=== PATIENT | female | born 1995 ===

== ENCOUNTER 2017-03-21 19:18 | Emergency (ER) | payer MEDICAID, OTHER ==
[2017-03-21 20:17] LABS: Basophils % (Auto) 0.3 % (0.0-1.8); Eosinophils % (Auto) 0.5 % (0.0-4.3); Hematocrit 33.4 % (30.3-42.9); Hemoglobin 11.5 gm/dl (10.1-14.3); Mean Corpuscular HGB Conc 34 % (30-34); Mean Corpuscular Hemoglobin 31 pg (28-32); Mean Corpuscular Volume 90 fl (79-97); Platelet Count 280 K/mm3 (140-440); Red Blood Count 3.72 M/mm3 (3.65-5.03); Red Cell Distribution Width 13.5 % (13.2-15.2); White Blood Count 18.4 K/mm3 (4.5-11.0)
[2017-03-21 20:20] LABS: Alanine Aminotransferase 11 units/L (7-56); Albumin 2.9 g/dL (3.9-5); Albumin/Globulin Ratio 0.8 %; Alkaline Phosphatase 67 units/L (35-129); Anion Gap 17 mmol/L; Blood Urea Nitrogen 4 mg/dL (7-17); Calcium 8.5 mg/dL (8.4-10.2); Carbon Dioxide 24 mmol/L (22-30); Chloride 96.8 mmol/L (98-107); Glucose 85 mg/dL (65-100); Lipase 11 units/L (13-60); Potassium 3.5 mmol/L (3.6-5.0); Sodium 134 mmol/L (137-145); Total Protein 6.4 g/dL (6.3-8.2)
[2017-03-21 21:54] LABS: Bacteria,Urine 3+ /HPF (Negative); Bilirubin,Urine NEG (Negative); Blood,Urine MOD (Negative); Ketones,Urine NEG (Negative); Leukocyte Esterase,Urine LG (Negative); Mucus,Urine FEW /HPF; Nitrite,Urine NEG (Negative); Protein,Urine <15 mg/dL mg/dL (Negative)
[2017-03-22] MEDS ORDERED: NACL 0.9% 1000 ML 1,000 ML ONE (05:53)
[2017-03-22] MEDS ORDERED: ZOFRAN IV ONE (05:55)
[2017-03-22] MEDS ORDERED: NACL 0.9% 1000 ML 1,000 ML IV ONE (05:55)
[2017-03-22] MEDS ORDERED: MORPHINE IV ONE (05:55)
--- NOTE | 2017-03-22 06:01 | Emergency Department Report ---
HPI - General Chief Complaint: Abdominal Pain Time Seen by Provider: 03/22/17 05:52 - HPI HPI: This is a 22-year-old female who presents to ED report lower quarter pain radiating to her back for 2 days. Patient rates pain as 8 out of 10, sharp, without alleviating or exacerbating factors. Patient denies any prior episode of such pain. Her Last menstrual period started on January 24. Patient complained of nausea with eating for the past 2 days also but no vomiting. Patient denies any fever, chills, night sweats. Patient denies any recent travel or sick contacts. ED Past Medical Hx - Past Medical History Previous Medical History?: No - Surgical History Past Surgical History?: No - Social History Smoking Status: Current Every Day Smoker Substance Use Type: Alcohol - Medications Home Medications: Home Medications Medication Instructions Recorded Confirmed Last Taken Type Nitrofurantoin [place]/M-Cryst 100 mg PO Q12HR #20 capsule 03/22/17 Unknown Rx [Macrobid CAP] ED Review of Systems ROS: Stated complaint: PAINFUL TO URNIATE W/BLOOD IN URINE Other details as noted in HPI Physical Exam - Physical Exam Vital Signs: Vital Signs 03/21/17 03/22/17 19:35 03:18 Temperature 99.9 F H 98.4 F Pulse Rate 112 H 90 Respiratory 22 18 Rate Blood Pressure 130/66 111/60 O2 Sat by Pulse 100 99 Oximetry Physical Exam: Vital signs reviewed General: No limitations, patient is alert in no acute distress Head exam: Atraumatic, normocephalic Eyes exam: Normal appearance ENT: Moist mucous membrane, normal oropharynx Neck exam: Normal inspection, full range of motion, no meningismus nontender Respiratory exam: Clear to auscultation bilateral, no wheezes, rales, crackles Cardiovascular: Normal rate and rhythm Abdomen: Soft, nondistended, but has right lower quadrant tenderness gu: patient refused, Extremity: Full range of motion normal inspection no deformity Back: Normal Inspection, full range of motion, no tenderness Neurologic: Alert, oriented x3, cranial nerves intact, no motor or sensory deficit Psychiatric: normal affect, normal mood ED Course Vital Signs 03/21/17 03/22/17 19:35 03:18 Temperature 99.9 F H 98.4 F Pulse Rate 112 H 90 Respiratory 22 18 Rate Blood Pressure 130/66 111/60 O2 Sat by Pulse 100 99 Oximetry ED Medical Decision Making - Lab Data Result diagrams: 03/21/17 19:45 03/21/17 19:45 Critical care attestation.: If time is entered above; I have spent that time in minutes in the direct care of this critically ill patient, excluding procedure time. ED Disposition Clinical Impression: Qualifiers: Weeks of gestation: less than 8 weeks Qualified Code(s): Z3A.01 - Less than 8 weeks gestation of UTI (urinary tract infection) during Qualifiers: Trimester: first trimester Qualified Code(s): O23.41 - Unspecified infection of urinary tract in , first trimester Clinical Impression: (Ruled Out): Abdominal pain Disposition: - TO HOME OR SELFCARE Is pt being admited?: No Does the pt Need Aspirin: No Condition: Stable Instructions: Abdominal Pain (ED), Urinary Tract Infection in Women (ED) Prescriptions: Nitrofurantoin Cochran/M-Cryst [Macrobid CAP] 100 mg PO Q12HR #20 capsule Referrals: PRIMARY CAREMD [Primary Care Provider] - 3-5 Days ANKITA JUÁREZ MD [Staff Physician] - 3-5 Days
--- NOTE | 2017-03-22 07:33 | Ultrasound Report ---
ULTRASOUND OB GREATER THAN 14 WEEKS FETUS History: Abdominal pain during . Comparison: None. Technique: Transabdominal ultrasound with Doppler interrogation. Gestation: Single Position: Breech Amniotic Fluid: Within normal limits Placenta: Posterior Placental Grade: 0 Heart Rate: 140 BPM Cervical length: 3.3 cm (Normal > 3 cm) BPD: 5.3 cm = 22 w 1 d HC: 20.5 cm = 22 w 4 d AC: 16.8 cm = 21 w 5 d FL: 4.1 cm = 23 w 3 d HC/AC Ratio: 1.2 Cephalic Index: 78.1 Estimated Weight: 508 grams LMP: 01/24/17 Clinical age = 8 w 1 d EDC: 10/31/17 US Gest. Age = 22 w 3 d EDC: 07/23/17
[2017-03-22 08:16] VITALS: BP 103/58
== END 2017-03-22 08:17 | disposition home or self-care (01) ==
LOC: ED 19:18
DX: O23.41 Unspecified infection of urinary tract in pregnancy, first trimester (principal); O99.331 Smoking (tobacco) complicating pregnancy, first trimester; Z3A.01 Less than 8 weeks gestation of pregnancy
CPT/HCPCS: 36415; 76805; 80053; 81001; 83690; 84702; 84703; 85025; 96361; 96374; 96375; 99284; J2270; J2405; J7030

== ENCOUNTER 2017-05-10 20:07 | Emergency (ER) | payer MEDICAID ==
--- NOTE | 2017-05-11 01:04 | Emergency Department Report ---
Minor Respiratory - HPI Chief Complaint: Upper Respiratory Infection Stated Complaint: COUGHING Time Seen by Provider: 05/11/17 00:29 Duration: 7 days Pain Location: Other (headache x 2 days. 03/11) Severity: severe (03/11) Minor Respiratory: Yes Rhinorrhea (Nasal congestion and sinus presure), Yes Able to Tolerate Fluids, Yes Cough (dry), No Sore Throat, No Ear Pain (ear plugged), No Sick Contacts, No Hemoptysis, No Chest Pain, No Shortness of Breath , No Fever Other History: Patient here reports that she is having in runny nose and congestion with cough and when she coughs she is a little short of breathall of the coughing and she is having generalized body ache times one day. She reports she started with nasal congestion for over a week . she is having great drainage to the back of her throat. She denies any chest pain. She states that she started having headache 2 days ago did say that a 10 that comes and goes and is located in the front of her head. Denies any fever or chills. Denies any neck pain or stiffness. Patient says she is 29 weeks that she goes to lie cycle on her last ultrasound was done on 05/06/2017. She denies any nausea or vomiting or any fever or chills. She says her baby is moving normally. She is not having any abdominal pain, back pain, vaginal bleeding or discharge. No -related issues. ED Review of Systems ROS: Stated complaint: COUGHING Other details as noted in HPI Comment: All other systems reviewed and negative Constitutional: no symptoms reported Eyes: denies: vision change ENT: congestion (. Nasal congestion and drainage), other (plugged ear sensation ). denies: ear pain, throat pain Respiratory: cough, shortness of breath (shortness of breath with cough and). denies: orthopnea, SOB with exertion, SOB at rest, stridor, wheezing Cardiovascular: denies: chest pain, palpitations, dyspnea on exertion, edema, syncope Gastrointestinal: denies: abdominal pain, nausea, vomiting, diarrhea Genitourinary: denies: urgency, dysuria, frequency, hematuria, discharge, abnormal menses, dyspareunia Musculoskeletal: myalgia. denies: back pain, joint swelling, arthralgia Skin: denies: rash Neurological: headache. denies: weakness, numbness, paresthesias, confusion, abnormal gait, vertigo ED Past Medical Hx - Past Medical History Previous Medical History?: No - Surgical History Past Surgical History?: No - Family History Family history: no significant - Social History Smoking Status: Former Smoker Substance Use Type: Alcohol - Medications Home Medications: Home Medications Medication Instructions Recorded Confirmed Last Taken Type Nitrofurantoin [place]/M-Cryst 100 mg PO Q12HR #20 capsule 03/22/17 Unknown Rx [Macrobid CAP] Azithromycin [Zithromax Z-LEE ANN] 250 mg PO QAM #6 tablet 05/11/17 Unknown Rx guaiFENesin [Mucinex] 600 mg PO Q12H PRN #10 tab.er.12h 05/11/17 Unknown Rx Minor Respiratory Exam - Exam General: Vital signs noted. No distress. Alert and acting appropriately. This is a 22-year-old female well-nourished well-developed in no acute distress. HEENT: Yes Moist Mucous Membranes, Yes Rhinorrhea (nasal congestion with clear drainage), Yes Frontal Tenderness (positive frontal sinus tenderness), No Pharyngeal Erythema, No Pharyngeal Exudates, No Conjuctival Injection, No Maxillary Tenderness Ear: Neither TM Bulge (lateral TM congested without erythema), Neither TM Erythema, Neither EAC Pain, Neither EAC Discharge Neck: Yes Supple, No Adenopathy (no C-spine tenderness) Lungs: Yes Good Air Exchange, Yes Cough (right cough), No Wheezes, No Ronchi, No Stridor, No Labored Respirations (normal work of breathing and), No Retractions, No Use of Accessory Muscles, No Other Abnormal Lung Sounds Heart: Yes Regular (tachycardic at 108), No Murmur Abdomen: Yes Normal Bowel Sounds, No Tenderness, No Peritoneal Signs Skin: No Rash, No Edema Neurologic: No Gross neurological deficit. Musculoskeletal: Unremarkable. ED Course Vital Signs 05/10/17 20:12 Temperature 98.7 F Pulse Rate 108 H Blood Pressure 141/72 O2 Sat by Pulse 96 Oximetry Vital Signs 05/10/17 05/11/17 20:12 01:04 Temperature 98.7 F 97.9 F Pulse Rate 108 H 92 H Respiratory 18 Rate Blood Pressure 141/72 Blood Pressure 117/70 [Right] O2 Sat by Pulse 96 100 Oximetry - Reevaluation(s) Reevaluation #1: 05/11/17 01:07 Patient stable throughout ED stay. ED Medical Decision Making - Medical Decision Making ED course: Patient here complaining of upper respiratory symptoms. She's had similar episode in the past with her . She is not having any related issues and she's been followed by [facility] which she goes for regular visit. Her baby is moving fine and she had ultrasound on 05/06/2016 and was told that her baby is doing fine. Physical findings for sinusitis, cough and nasal congestion. I explained to patient treatment plan and diagnosis and she voiced understanding. Patient discharged home with her family in stable condition with prescription for Mucinex and Zpack and to follow up with her [facility] [employer] in 1-2 days. Critical care attestation.: If time is entered above; I have spent that time in minutes in the direct care of this critically ill patient, excluding procedure time. ED Disposition Clinical Impression: Cough in adult, Nasal congestion with rhinorrhea Sinusitis, acute Qualifiers: Sinusitis location: frontal Recurrence: not specified as recurrent Qualified Code(s): J01.10 - Acute frontal sinusitis, unspecified Headache Qualifiers: Headache type: unspecified Headache chronicity pattern: episodic headache Intractability: not intractable Qualified Code(s): R51 - Headache Disposition: DC-01 TO HOME OR SELFCARE Is pt being admited?: No Does the pt Need Aspirin: No Condition: Stable Instructions: Sinusitis (ED), Acute Cough (ED) Additional Instructions: Please state Mucinex as prescribed Flush nostrils out with saline nasal wash and disorder helped to relieve E nasal congestion Take antibiotic as prescribed Prescriptions: Azithromycin [Zithromax Z-LEE ANN] 250 mg PO QAM #6 tablet guaiFENesin [Mucinex] 600 mg PO Q12H PRN #10 tab.er.12h PRN Reason: Congestion Referrals: PRIMARY CARE,MD [Primary Care Provider] - 2-3 Days Forms: Accompanied Note, Work/School Release Form(ED)
[2017-05-11 11:34] VITALS: BP 117/70
== END 2017-05-11 01:15 | disposition home or self-care (01) ==
LOC: ED 20:07
DX: J01.10 Acute frontal sinusitis, unspecified (principal); R51 Headache; R05 Cough; R09.81 Nasal congestion; Z87.891 Personal history of nicotine dependence
CPT/HCPCS: 99282